=== PATIENT | female | born 1935 | race Two or more races ===

== ENCOUNTER 2017-04-07 20:14 | Emergency (ER) | payer OTHER ==
[~2017-04-07] VITALS: Ht 165.1 cm; Wt 66.1 kg
[2017-04-07 20:17] VITALS: BP 174/76
== END 2017-04-07 23:55 | disposition left against medical advice (07) ==
LOC: EME 20:14
DX: M79.661 Pain in right lower leg (principal); M79.662 Pain in left lower leg; M79.651 Pain in right thigh; M79.652 Pain in left thigh; Z53.21 Procedure and treatment not carried out due to patient leaving prior to being seen by health care provider